=== PATIENT | male | born 1950 | race American Indian/Alaskan Native ===

== ENCOUNTER 2017-07-18 11:30 | Day surgery (SDC) | payer MEDICARE, BC ==
[~2017-07-18 11:30] MED LIST: Cyanocobalamin (Vitamin B12) 1,000 MCG/ML SDV IM ONE; Glycopyrrolate 0.2 MG/ML 2 ML SDV IVPUSH ONE; Lactated Ringers 1,000 ML IV SCH; MVI, Adult with Vitamin K 10 ML, Thiamine 200 MG, Chromium/Copper/Mang/Selen/Zn 1 ML in... IV ONE
[2017-07-18] MEDS ORDERED: Midazolam 1 MG/ML 2 ML SDV ONE (11:47)
[2017-07-18] MEDS ORDERED: Propofol 200 MG/20 ML SDV ONE (11:47)
[2017-07-18] MEDS ORDERED: fentaNYL 100 MCG/2 ML SDV ONE (11:47)
[2017-07-18] MEDS ORDERED: Iohexol 647 MG/ML 50 ML SDV IVPUSH PRN (14:08)
[2017-07-18] MEDS ORDERED: Iohexol 647 MG/ML 50 ML SDV PO SCH (14:15)
--- NOTE | 2017-07-18 14:43 | CR ---
UGI wo KUB HISTORY: ?EMPTYING GASTRIC BYPASS THROUGH RNY LIMB FINDINGS: Upper GI series was obtained using water-soluble contrast. The patient swallows the contras t without difficulty. Mild esophageal dysmotility seen with tertiary contractions in the distal esoph lola. No GE reflux occurred during the exam. Contrast empties readily into the gastric pouch and imme diately passes through the gastrojejunostomy. There is no contrast extravasation, mass, or abnormal f illing defect. Lia limb is not dilated. There is no obstruction. I cannot definitively identify the site of the distal jejunal-jejunal anastomosis. IMPRESSION: Gastric bypass changes appears satisfactory. No obstruction or contrast extravasation is identified. Mild esophageal dysmotility is noted.
--- NOTE | 2017-07-22 08:35 | OR ---
DATE OF PROCEDURE: 07/18/2017 PREOPERATIVE DIAGNOSIS: Dysphagia, status post previous Lia-en-Y gastric bypass. POSTOPERATIVE DIAGNOSIS: Mild pouch gastritis with possible partial small bowel obstruction (not able to establish open area beyond roughly 5 to 10 cm past the gastrojejunostomy). OPERATIVE PROCEDURE: Upper GI endoscopy. ANESTHESIA: IV sedation. INDICATION FOR PROCEDURE: This is a 67-year-old status post Lia-en-Y gastric bypass, presenting with a history of worsening dysphagia. Plan is proceed with upper GI endoscopy with dilation and/or biopsies as indicated. Potential risks including bleeding and perforation were discussed and the patient wishes to proceed. DESCRIPTION OF PROCEDURE: The patient was taken to the operating room and placed in a left lateral decubitus position. IV sedation was administered, after which the upper GI endoscope was passed orally through the length of the esophagus, into the gastric pouch and into the proximal end of the Lia limb. These areas were noninflamed and no areas of stricturing were identified, however, despite various approaches, the scope could not find a well-defined outlet through the Lia limb beyond few centimeters past the gastrojejunostomy. After multiple attempts were failed to pass that, the decision was made to remove the scope and set up an upper GI x-ray. The scope was then withdrawn and the procedure was concluded. The patient was taken to the recovery room in satisfactory condition. The patient also underwent an upper GI x-ray. This showed rapid emptying of the gastric pouch into the Lia limb with no obstructive findings. It was notable that the patient had quite a bit in the way of esophageal spasm during the course of the procedure and the overall picture was suggestive that he may be feeling some esophageal spasm as part of his dysphagia and given this, the patient will be started on Levsin 0.125 mg q.i.d. He will be following up with Rachel Joseph in 1 month. Gaston Lake MD /[id number]
== END 2017-07-18 15:30 | disposition home or self-care (01) ==
LOC: JP.SDS 11:30
PROVIDERS: ATTEND Surgery
DX: K22.4 Dyskinesia of esophagus (principal); J44.9 Chronic obstructive pulmonary disease, unspecified; I25.10 Atherosclerotic heart disease of native coronary artery without angina pectoris; I10 Essential (primary) hypertension; K21.9 Gastro-esophageal reflux disease without esophagitis; E11.9 Type 2 diabetes mellitus without complications; K29.70 Gastritis, unspecified, without bleeding; Z88.0 Allergy status to penicillin; Z98.84 Bariatric surgery status; Z88.8 Allergy status to other drugs, medicaments and biological substances
CPT/HCPCS: 43235; 74240; J2250; J2704; J3010; J3411; J3420; J7120; Q9967; J3490

== ENCOUNTER → 2022-05-15 | Day surgery (SDC) | payer MEDICARE, BC ==
[~2022-05-15] MED LIST changes: -Cyanocobalamin (Vitamin B12) 1,000 MCG/ML SDV IM ONE; -Glycopyrrolate 0.2 MG/ML 2 ML SDV IVPUSH ONE; -Lactated Ringers 1,000 ML IV SCH; -MVI, Adult with Vitamin K 10 ML, Thiamine 200 MG, Chromium/Copper/Mang/Selen/Zn 1 ML in... IV ONE; +Propofol 200 MG/20 ML SDV ONE; +fentaNYL 100 MCG/2 ML SDV ONE
== END ==
LOC: JP.SDS 06:00
PROVIDERS: ATTEND Surgery
DX: R13.10 Dysphagia, unspecified (principal); I10 Essential (primary) hypertension; K21.9 Gastro-esophageal reflux disease without esophagitis; I25.10 Atherosclerotic heart disease of native coronary artery without angina pectoris; E66.9 Obesity, unspecified; E11.9 Type 2 diabetes mellitus without complications; J44.9 Chronic obstructive pulmonary disease, unspecified; Z98.84 Bariatric surgery status; Z79.899 Other long term (current) drug therapy; Z88.0 Allergy status to penicillin; Z88.6 Allergy status to analgesic agent; Z88.8 Allergy status to other drugs, medicaments and biological substances
CPT/HCPCS: 43235; J2704; J3010

== ENCOUNTER 2025-03-25 10:32 | Day surgery (SDC) | payer MEDICARE, BC ==
[2025-03-25] MEDS ORDERED: fentaNYL 50 MCG/ML SDV ONE (10:52)
[2025-03-25] MEDS ORDERED: Propofol 200 MG/20 ML SDV ONE (10:53)
[2025-03-25] MEDS: Lactated Ringers 1,000 ML IV SCH (11:17)
== END 2025-03-25 13:16 | disposition home or self-care (01) ==
LOC: JP.SDS 10:32
PROVIDERS: ATTEND Surgery
DX: K21.00 Gastro-esophageal reflux disease with esophagitis, without bleeding (principal)
CPT/HCPCS: 43239; 88305; J2704; J3010; J7120